=== PATIENT | female | born 1990 | race Hispanic/Latino ===

== ENCOUNTER 2022-09-08 14:53 | Emergency (ER) | payer OTHER ==
[~2022-09-08] VITALS: Ht 162.6 cm; Wt 131.1 kg
[2022-09-08] MEDS ORDERED: TRAM50TA4 PO (17:58)
[2022-09-08] MEDS ORDERED: NAPR500T6 PO (17:58)
[2022-09-08] MEDS ORDERED: TRAMADOL HCL 50 MG TABLET PO ONE (18:00)
[2022-09-08] MEDS ORDERED: KETOROLAC 30MG VIAL (30MG/ML) IM ONE (18:00)
[2022-09-08 18:05] VITALS: BP 145/73
== END 2022-09-08 18:31 | disposition home or self-care (01) ==
LOC: EDH 14:53
DX: S83.511A Sprain of anterior cruciate ligament of right knee, initial encounter (principal); S83.281A Other tear of lateral meniscus, current injury, right knee, initial encounter; Z88.5 Allergy status to narcotic agent; Z88.0 Allergy status to penicillin; Z90.49 Acquired absence of other specified parts of digestive tract; Z98.890 Other specified postprocedural states; W01.0XXA Fall on same level from slipping, tripping and stumbling without subsequent striking against object, initial encounter; Y93.89 Activity, other specified; Y92.89 Other specified places as the place of occurrence of the external cause; Y99.8 Other external cause status
CPT/HCPCS: 99284; 29505; 73562; 96372; J1885